=== PATIENT | male | born 1960 | race American Indian/Alaskan Native ===

== ENCOUNTER 2021-09-03 03:04 | Emergency (ER) | payer MEDICAID ==
[2021-09-03] MEDS ORDERED: oxyCODONE /ACETAMINOPHEN 5-325MG TAB PO ONE (03:25)
--- NOTE | 2021-09-03 03:31 | Emergency Department Report ---
ED Lower Extremity HPI - General Chief Complaint: Extremity Injury, Lower Stated Complaint: R ANKLE PAIN. Time Seen by Provider: 09/03/21 03:24 Source: patient, EMS Mode of arrival: Stretcher Limitations: No Limitations - History of Present Illness Initial Comments: HPI: I slipped on water HPI: This is a 61-year-old male with history of hypertension, atrial fibrillation, congestive heart failure, dyslipidemia, pacemaker and AICD present who presents with right ankle leg pain. Patient slipped on water. He is currently staying at a hotel room. He has right ankle and right calf pain. Upon arrival to the emergency department he was concerned that he may be in atrial fibrillation. He felt a lump in his chest which typically indicates atrial fibrillation. MD Complaint: leg injury, ankle injury -: This morning Injury: Leg: Right, Ankle: Right Type of Injury: inversion Place: other (At local [facility]) Severity: severe Severity scale (0 -10): 10 Improves With: nothing Worsens With: weight bearing, movement, palpation Context: fall (Slip and fall on water) Associated Symptoms: able to partially bear weight Treatments Prior to Arrival: other (EMS transport) - Related Data Previous Rx's Medication Instructions Recorded Last Taken Type HYDROcodone/APAP 5-325 [[place] 1 each PO Q6HR PRN #10 tablet 09/03/21 Unknown Rx 5/325] Ibuprofen [Motrin 400 MG tab] 400 mg PO TID 5 Days #15 tablet 09/03/21 Unknown Rx Allergies Allergy/AdvReac Type Severity Reaction Status Date / Time No Known Allergies Allergy Verified 09/03/21 03:11 ED Review of Systems ROS: Stated complaint: R ANKLE PAIN. Other details as noted in HPI Comment: All other systems reviewed and negative Constitutional: denies: chills, fever, malaise Respiratory: denies: cough, shortness of breath, wheezing Cardiovascular: chest pain Gastrointestinal: denies: abdominal pain, nausea, vomiting ED Past Medical Hx - Past Medical History Previous Medical History?: Yes Hx Hypertension: Yes Hx Congestive Heart Failure: Yes Additional medical history: A-FIB - Surgical History Past Surgical History?: Yes Hx Pacemaker: Yes - Social History Smoking Status: Former Smoker Substance Use Type: None - Medications Home Medications: Home Medications Medication Instructions Recorded Confirmed Last Taken Type HYDROcodone/APAP 5-325 [[place] 1 each PO Q6HR PRN #10 tablet 09/03/21 Unknown Rx 5/325] Ibuprofen [Motrin 400 MG tab] 400 mg PO TID 5 Days #15 tablet 09/03/21 Unknown Rx ED Physical Exam - General Limitations: No Limitations General appearance: alert, in no apparent distress - Head Head exam: Present: atraumatic, normocephalic - Eye Eye exam: Present: normal appearance - ENT ENT exam: Present: mucous membranes moist - Neck Neck exam: Present: normal inspection, full ROM - Respiratory Respiratory exam: Present: normal lung sounds bilaterally. Absent: respiratory distress, wheezes, rales, rhonchi - Cardiovascular Cardiovascular Exam: Present: regular rate, normal rhythm, normal heart sounds. Absent: systolic murmur, diastolic murmur, rubs, gallop - GI/Abdominal GI/Abdominal exam: Present: soft, normal bowel sounds. Absent: distended, tenderness, guarding, rebound - Rectal Rectal exam: Present: deferred - Extremities Exam Extremities exam: Present: normal inspection - Expanded Lower Extremity Exam Right Knee exam: Present: normal inspection. Absent: tenderness, swelling Lower Leg exam: Present: normal inspection, tenderness (Right calf tenderness) Ankle exam: Present: normal inspection, tenderness (Diffuse ankle tenderness). Absent: swelling Foot/Toe exam: Present: normal inspection, full ROM. Absent: tenderness, swelling Neuro vascular tendon exam: Present: no vascular compromise - Back Exam Back exam: Present: normal inspection - Neurological Exam Neurological exam: Present: alert, oriented X3 - Psychiatric Psychiatric exam: Present: normal affect, normal mood - Skin Skin exam: Present: warm, dry, intact, normal color. Absent: rash ED Course Vital Signs 09/03/21 09/03/21 09/03/21 03:12 03:32 03:46 Temperature 97.7 F Pulse Rate 70 70 70 Respiratory 18 21 24 Rate Blood Pressure 149/81 Blood Pressure 153/101 [Left] Blood Pressure 149/81 [Right] O2 Sat by Pulse 100 100 98 Oximetry 09/03/21 09/03/21 09/03/21 04:06 04:16 04:30 Temperature Pulse Rate 79 71 70 Respiratory 28 H 11 L 16 Rate Blood Pressure 149/81 138/75 138/75 Blood Pressure [Left] Blood Pressure [Right] O2 Sat by Pulse 99 100 100 Oximetry 09/03/21 04:46 Temperature Pulse Rate 70 Respiratory 17 Rate Blood Pressure 138/75 Blood Pressure [Left] Blood Pressure [Right] O2 Sat by Pulse 99 Oximetry ED Lower Extremity MDM - EKG Data -: EKG Interpreted by Me - EKG Data 09/03/21 03:29 EKG obtained 0315 Atrial pacing 70 bpm normal axis normal QTC positive LVH no ST elevation repolarization abnormality present - Radiology Data Radiology results: report reviewed Patient Name: PATRICIA LANZA Gender: Male Date of : April 26, 1992 Referring Provider: SAÚL FOY Organization: [facility] Accession Number: [id number] Requested Date: September 03, 2021 01:19 Report Status: Final Requested Procedure: 1 Procedure Description: XR chest 1V ap Modality: XR Findings Reporting MD: Hiram Sawyer Dictation Time: September 03, 2021 00:53 Heel Seam Rubber: Not available Food Consultant Date: CHEST 1 VIEW INDICATION / CLINICAL INFORMATION: dyspnea. COMPARISON: None available. FINDINGS: SUPPORT DEVICES: None. HEART / MEDIASTINUM: No significant abnormality. LUNGS / PLEURA: No significant pulmonary or pleural abnormality. No pneumothorax. ADDITIONAL FINDINGS: No significant additional findings. IMPRESSION: 1. No active cardiopulmonary disease. Signer Name: Hiram Sawyer II, MD Signed: 09/03/2021 12:53 AM Workstation Name: [email or web address] Patient Name: EILEEN LO Gender: Male Date of : 1960 Home Phone: Referring Provider: SAÚL FOY Organization: [facility] Accession Number: [id number] Requested Date: September 03, 2021 03:25 Report Status: Final Requested Procedure: 1 Procedure Description: XR ankle 3+V RT Modality: XR Findings Reporting MD: Hiram Sawyer Dictation Time: September 03, 2021 03:37 Heel Seam Rubber: Not available Food Consultant Date: RIGHT ANKLE . VIEW(S) INDICATION / CLINICAL INFORMATION: Ankle pain slip and fall COMPARISON: None available. FINDINGS: BONES / JOINT(S): No acute fracture or subluxation. No significant arthritis. SOFT TISSUES: No significant abnormality. ADDITIONAL FINDINGS: None. IMPRESSION: No acute pathology. Signer Name: Hiram Sawyer II, MD - Medical Decision Making 1. Right leg ankle injury without fracture dislocation according to radiographs of the right tibia-fibula and ankle. Patient received ibuprofen Percocet emergency department 2. History of atrial fibrillation: Atrial pacing on EKG. Do not suspect acute coronary syndrome or pulmonary embolism. Remy wrap was applied to the affected extremity under my supervision. After application the extremity was neurovascularly intact with acceptable alignment. Patient also requested crutches. He was provided crutches. Prescribed ibuprofen [place]. Referred to orthopedic surgeon. 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 For pain relief in the emergency, patient received Percocet and ibuprofen Critical care attestation.: If time is entered above; I have spent that time in minutes in the direct care of this critically ill patient, excluding procedure time. ED Disposition Clinical Impression: Right ankle sprain, Sprain of right lower leg, History of congestive heart failure, History of atrial fibrillation Disposition: 01 HOME / SELF CARE / HOMELESS Is pt being admited?: No Does the pt Need Aspirin: No Condition: Stable Instructions: Ankle Sprain, [id number] Prescriptions: Ibuprofen [Motrin 400 MG tab] 400 mg PO TID 5 Days #15 tablet HYDROcodone/APAP 5-325 [[place] 5/325] 1 each PO Q6HR PRN #10 tablet PRN Reason: Pain Referrals: JESSICA CELESTIN MD [Staff Physician] - 3-5 Days
[2021-09-03] MEDS: IBUPROFEN 800 MG TAB PO ONE ×2 (03:52→03:54)
[2021-09-03 04:49] VITALS: BP 138/75
--- NOTE | 2021-09-03 14:40 | Electrocardiograph Report ---
[facility] Test Date: 2021-09-03 Test Time: 03:15:50 Pat Name: EILEEN LO Department: Room: Gender: M Health Tech: ED : 1960 Requested By: SAÚL FOY Order Number: [id number] Reading MD: Castro Fields Measurements Intervals Holcomb Rate: 71 P: NE: 143 QRS: -11 QRSD: 101 T: 154 QT: 428 QTc: 465 Interpretive Statements Atrial-paced complexes LVH with secondary repolarization abnormality No previous ECG available for comparison Electronically Signed On 09-03-2021 14:39:59 EST by Castro Fields
--- NOTE | 2021-09-05 15:14 | XRay Report ---
RIGHT ANKLE . VIEW(S) INDICATION / CLINICAL INFORMATION: Ankle pain slip and fall COMPARISON: None available. FINDINGS: BONES / JOINT(S): No acute fracture or subluxation. No significant arthritis. SOFT TISSUES: No significant abnormality. ADDITIONAL FINDINGS: None. IMPRESSION: No acute pathology. Signer Name: Hiram Sawyer II, MD Signed: 09/03/2021 4:37 AM Workstation Name: [id number]
--- NOTE | 2021-09-05 15:15 | XRay Report ---
XR tibia fibula 2V RT INDICATION / CLINICAL INFORMATION: Leg pain slip and fall COMPARISON: None available. FINDINGS: No significant abnormality demonstrated. No acute findings. IMPRESSION: 1. No acute pathology. Signer Name: Hiram Sawyer II, MD Signed: 09/03/2021 4:37 AM Workstation Name: [id number]
== END 2021-09-03 05:15 | disposition home or self-care (01) ==
LOC: ED 03:04
DX: S93.401A Sprain of unspecified ligament of right ankle, initial encounter (principal); S86.911A Strain of unspecified muscle(s) and tendon(s) at lower leg level, right leg, initial encounter; Z87.891 Personal history of nicotine dependence; I10 Essential (primary) hypertension; X58.XXXA Exposure to other specified factors, initial encounter; Y93.89 Activity, other specified; Y92.89 Other specified places as the place of occurrence of the external cause; Y99.8 Other external cause status; Z86.79 Personal history of other diseases of the circulatory system
CPT/HCPCS: 93005; 93010; 99284